=== PATIENT | female | born 1950 | race Caucasian/White ===

== ENCOUNTER → 2020-07-28 | Outpatient (CLI) | payer OTHER ==
[~2020-07-28] MED LIST: ALTACE5 M1 PO; AMBIEN 10 MG TA10 MG PO; ANASPAZ0.125 MG SL; ASPIRIN325 PO; HYDROCODON-ACE1 EAC1 PO; KEFLEX500 MG PO; LIPITOR40 MG PO; PERCOCET 5-3251 EACH PO; PLAVIX 75 MG TA75 MG PO; ZOCOR 20 MG TAB20 M1 PO; ZOLOFT 50 MG TA50 M1 PO
== END ==
LOC: SJCVC 13:56
PROVIDERS: ATTEND Internal Medicine Cardiovascular Disease
DX: I44.0 Atrioventricular block, first degree (principal); I25.10 Atherosclerotic heart disease of native coronary artery without angina pectoris; I10 Essential (primary) hypertension; E78.00 Pure hypercholesterolemia, unspecified; Z88.5 Allergy status to narcotic agent; Z79.82 Long term (current) use of aspirin; Z79.899 Other long term (current) drug therapy; Z87.891 Personal history of nicotine dependence